=== PATIENT | female | born 1985 | race Caucasian/White ===

== ENCOUNTER 2019-05-25 18:42 | Emergency (ER) | payer OTHER ==
[2019-05-25 18:48] VITALS: BP 105/48
--- NOTE | 2019-05-25 18:57 | UC ---
Complaint Female HPI - HPI Summary HPI Summary: 34 yo female presents with vaginal odor and urinary frequency since earlier today. She tells me that she is on her period and yesterday she inserted a tampon and then got busy throughout the day and did not remove it for about 10 hours. Today she noticed some vaginal odor and urinary frequency. She is concerned for infection. She denies fever, chills, abdominal pain, n/v, pain during urination, back pain, vaginal discharge or itching - History Of Current Complaint Chief Complaint: UCGU Stated Complaint: PERSONAL Time Seen by Provider: 05/25/19 18:57 Hx Obtained From: Patient Hx Last Menstrual Period: 05/20/19 Onset/Duration: Sudden Onset Severity Initially: Mild Severity Currently: Mild Pain Intensity: 1 Pain Scale Used: 0-10 Numeric - Allergies/Home Medications Allergies/Adverse Reactions: Allergies Allergy/AdvReac Type Severity Reaction Status Date / Time No Known Allergies Allergy Verified 05/25/19 18:48 Home Medications: Home Medications Citalopram TAB* [CeleXA TAB*] 30 mg PO DAILY 05/25/19 [History Confirmed ] SUMAtriptan TAB* [Imitrex TAB*] 25 mg PO SEE INSTRUCTIONS 05/25/19 [History Confirmed 05/25/19] Vitamins* PO DAILY 05/25/19 [History] PMH/Surg Hx/FS Hx/Imm Hx Neurological History: Migraine Psychological History: Anxiety - Surgical History Surgical History: Yes Surgery Procedure, Year, and Place: TEAR DUCT SURGERY AT AGE 5, ORAL SURGERY - Family History Known Family History: Positive: None - Social History Lives: With Family Alcohol Use: None Substance Use Type: None Smoking Status (MU): Never Smoked Tobacco Review of Systems All Other Systems Reviewed And Are Negative: Yes Constitutional: Positive: Negative Skin: Positive: Negative Respiratory: Positive: Negative Cardiovascular: Positive: Negative Gastrointestinal: Positive: Negative Genitourinary: Positive: Frequency, Other - Vaginal odor Neurological: Positive: Negative Psychological: Positive: Negative Physical Exam - Summary Physical Exam Summary: GENERAL: NAD. WDWN. No pain distress. SKIN: No rashes, sores, lesions, or open wounds. NECK: Supple. Nontender. No lymphadenopathy. CHEST: CTAB. No r/r/w. No accessory muscle use. Breathing comfortably and in no distress. CV: RRR. Without m/r/g. Pulses intact. Cap refill <2seconds ABDOMEN: Soft. NTTP. No distention or guarding. No CVA tenderness. Bowel sounds present NEURO: Alert. PSYCH: Age appropriate behavior. Triage Information Reviewed: Yes Vital Signs: Initial Vital Signs Temp 98.8 F 05/25/19 18:44 Pulse 57 05/25/19 18:44 Resp 16 05/25/19 18:44 BP 105/48 05/25/19 18:44 Pulse Ox 100 05/25/19 18:44 Vital Signs Reviewed: Yes Pelvic Exam: Positive: External Exam Normal, Speculum Exam Normal, Active Bleeding - Mild, Other - Assisted by Gladys SHARMA. Negative: No Cerv. Motion Tender, No Masses, Cervicitis, Discharge, Lesions, Mass Complaint Female Dx - Course Course Of Treatment: UA negative for infection. Pelvic exam WNL and there was no malodorous smell on exam - there was a very small amount of thin yellowish appearing mucus that appears to be normal vaginal secretions, but a culture of this was obtained and will be sent for eval. I suspect her symptoms are irritation from the tampon. I recommended that she continue to monitor her symptoms and if she develops a fever, abdominal pain, or worsening symptoms - to be rechecked. - Differential Dx/Diagnosis Provider Diagnosis: Vaginal odor Discharge - Sign-Out/Discharge Documenting (check all that apply): Patient Departure All imaging exams completed and their final reports reviewed: No Studies - Discharge Plan Condition: Stable Disposition: HOME Referrals: No Primary Care Phys,NOPCP [Primary Care Provider] - Additional Instructions: If you develop a fever, shortness of breath, chest pain, new or worsening symptoms - please call your PCP or go to the ED immediately. Your exam today was normal and your urine test did not show any sign of infection. We collected a sample and will send it to test for any bacterial vaginosis. Continue to monitor your symptoms and if they worsen or do not improve - please be rechecked - Billing Disposition and Condition Condition: STABLE Disposition: Home - Attestation Statements Provider Attestation: Per institutional requirements, I have reviewed the chart, however, I was not consulted specifically or made aware of this patient by the midlevel provider. I did not personally evaluate, interact with , or disposition this patient.
--- NOTE | 2019-05-27 07:04 | UC ---
- Progress Note Progress Note: Chart reviewed Negative for Gardnerella, Leah, and Trichomonas. No change to plan Course/Dx - Diagnoses Provider Diagnoses: Vaginal odor Discharge - Sign-Out/Discharge Documenting (check all that apply): Post-Discharge Follow Up All imaging exams completed and their final reports reviewed: No Studies - Discharge Plan Condition: Stable Disposition: HOME Referrals: No Primary Care Phys,NOPCP [Primary Care Provider] - Additional Instructions: If you develop a fever, shortness of breath, chest pain, new or worsening symptoms - please call your PCP or go to the ED immediately. Your exam today was normal and your urine test did not show any sign of infection. We collected a sample and will send it to test for any bacterial vaginosis. Continue to monitor your symptoms and if they worsen or do not improve - please be rechecked - Billing Disposition and Condition Condition: STABLE Disposition: Home
== END 2019-05-25 19:37 | disposition home or self-care (01) ==
LOC: UCEAST 18:42
DX: N89.8 Other specified noninflammatory disorders of vagina (principal); F41.9 Anxiety disorder, unspecified
CPT/HCPCS: 81002; 87480; 87510; 87660; 99202; G0463

== ENCOUNTER 2019-07-06 07:47 | Emergency (ER) | payer OTHER ==
[2019-07-06 07:59] VITALS: BP 105/65
--- NOTE | 2019-07-06 08:16 | UC ---
Ear Complaint HPI - HPI Summary HPI Summary: PROGRESSIVELY WORSENING PAIN IN HER BILATERAL EARS WITH MUTED HEARING ON THE RIGHT. USES Q-TIPS EVERY DAY. DENIES ANY RECENT URI SYMPTOMS. NO FEVER. - History of Current Complaint Chief Complaint: UCEar Stated Complaint: EAR PAIN Time Seen by Provider: 07/06/19 07:59 Hx Obtained From: Patient Hx Last Menstrual Period: 06/20/19 Onset/Duration: Gradual Onset, Lasting Days, Still Present Severity Initially: Moderate Severity Currently: Moderate Pain Intensity: 6 Pain Scale Used: 0-10 Numeric Aggravating Factors: Nothing Alleviating Factors: OTC Meds Associated Signs/Symptoms: Positive: Hearing Loss. Negative: Discharge, Swelling @, URI Symptoms - Allergies/Home Medications Allergies/Adverse Reactions: Allergies Allergy/AdvReac Type Severity Reaction Status Date / Time No Known Allergies Allergy Verified 07/06/19 07:59 Home Medications: Home Medications Dapsone [Aczone] 7.5 % EX DAILY 07/06/19 [History Confirmed 07/06/19] PMH/Surg Hx/FS Hx/Imm Hx Psychological History: Anxiety, Depression - Surgical History Surgical History: Yes Surgery Procedure, Year, and Place: TEAR DUCT SURGERY AT AGE 5, ORAL SURGERY - Family History Known Family History: Positive: None - Social History Alcohol Use: None Substance Use Type: None Smoking Status (MU): Never Smoked Tobacco Review of Systems All Other Systems Reviewed And Are Negative: Yes Constitutional: Positive: Negative ENT: Positive: Ear Ache Respiratory: Positive: Negative Cardiovascular: Positive: Negative Gastrointestinal: Positive: Negative Physical Exam Triage Information Reviewed: Yes Appearance: Well-Appearing, No Pain Distress, Well-Nourished Vital Signs: Initial Vital Signs Temp 97.9 F 07/06/19 07:56 Pulse 74 07/06/19 07:56 Resp 16 07/06/19 07:56 BP 105/65 07/06/19 07:56 Pulse Ox 96 07/06/19 07:56 Vital Signs Reviewed: Yes Eyes: Positive: Conjunctiva Clear ENT: Positive: Hearing grossly normal, Pharynx normal, Other - BILATERAL EACS EDEMATOUS WITH DEBRIS (RIGHT > LEFT). TMS NOT WELL VISUALIZED. PAIN WITH TRACTION ON PINNA AND TRAGUS BILATERALLY Neck: Positive: Supple Respiratory: Positive: No respiratory distress, No accessory muscle use Cardiovascular: Positive: Pulses Normal Abdomen Description: Positive: Soft Musculoskeletal: Positive: No Edema Neurological: Positive: Alert Psychological: Positive: Age Appropriate Behavior Skin: Negative: Rashes Ear Complaint Course/Dx - Differential Dx/Diagnosis Provider Diagnosis: Bilateral otitis externa Discharge ED - Sign-Out/Discharge Documenting (check all that apply): Patient Departure All imaging exams completed and their final reports reviewed: No Studies - Discharge Plan Condition: Stable Disposition: HOME Prescriptions: Ciproflox/Dexameth OTIC.SUSP* [Ciprodex Otic*] 4 drop BOTH EARS BID #1 bottle Patient Education Materials: Otitis Externa (ED) Referrals: Carlene Mata DO [Primary Care Provider] - If Needed Additional Instructions: YOU HAVE EXTERNAL EAR INFECTIONS IN BOTH YOUR EAR CANALS. USE THE DROPS TWICE DAILY FOR 7 DAYS. YOU MAY CALL ME HERE ON FRIDAY MORNING IF YOU HAVE ANY QUESTIONS OR CONCERNS. - Billing Disposition and Condition Condition: STABLE Disposition: Home
== END 2019-07-06 08:20 | disposition home or self-care (01) ==
LOC: UCEAST 07:47
DX: H60.93 Unspecified otitis externa, bilateral (principal); F41.9 Anxiety disorder, unspecified; F32.9 Major depressive disorder, single episode, unspecified
CPT/HCPCS: 99212; G0463